=== PATIENT | male | born 1975 | race African-American/Black ===

== ENCOUNTER 2020-12-09 18:10 | Emergency (ER) | payer OTHER ==
[~2020-12-09] VITALS: Ht 175.3 cm; Wt 79.5 kg
[2020-12-09] MEDS ORDERED: LIDOCAINE (700MG/PATCH) PATCH. ONE (18:36)
--- NOTE | 2020-12-09 18:36 | PHYS DOC ---
Past History Additional Past Medical Histor: chronic back pain (MELINDA LEGER APRN) Past Surgical History: Other Additional Past Surgical Histo: bilat foot surgery (MELINDA LEGER APRN) General Adult EDM: Chief Complaint: LOWER BACK PAIN OR INJURY HPI: HPI: Patient is a 45-year-old female who presents to the ER for chronic low back pain x1 month. Patient saw his primary care provider and was given a prescription for naproxen and is undergoing physical therapy. 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 He was brought in by EMS and they administered 5 mg of Versed IV. Patient denies any loss of bowel or bladder, numbness or tingling in his extremities, saddle anesthesias. (MELINDA LEGER APRN) Review of Systems: Review of Systems: 14 body systems of the review of systems have been reviewed. See HPI for pertinent positive and negative responses, otherwise all other systems are negative, nonpertinent or noncontributory (MELINDA LEGER APRN) Current Medications: Current Meds: Current Medications Medications (Trade) Dose Ordered Sig/Dianelys Start Time Stop Time Status Last Admin Dose Admin Acetaminophen (Tylenol) 650 mg 1X ONCE 12/09/20 18:30 12/09/20 18:31 UNV Diphenhydramine HCl (Benadryl) 25 mg 1X ONCE 12/09/20 18:30 12/09/20 18:31 UNV Fentanyl Citrate (Fentanyl 2ml Vial) 100 mcg 1X ONCE 12/09/20 18:30 12/09/20 18:31 UNV Ketorolac Tromethamine (Toradol Im) 60 mg 1X ONCE 12/09/20 18:30 12/09/20 18:31 UNV Lidocaine (Lidoderm) 1 patch DAILY 12/10/20 09:00 UNV Miscellaneous (Lidoderm Patch Removal) 1 ea QHS 12/09/20 21:00 UNV (MELINDA LEGER APRN) Physical Exam: PE: Constitutional: Well developed, well nourished, no acute distress, non-toxic appearance. [] HENT: Normocephalic, atraumatic, bilateral external ears normal, oropharynx moist, no oral exudates, nose normal. [] Eyes: PERRL, EOMI, conjunctiva normal, no discharge. [] Neck: Normal range of motion, no bony cervical spinal tenderness, no stridor Cardiovascular: Normal peripheral perfusion Lungs & Thorax: Normal work of breathing, no tachypnea Abdomen: Bowel sounds normal, soft, no tenderness, no masses, no pulsatile masses. [] Skin: Warm, dry, no erythema, no rash. [] Back: Left lower paraspinal tenderness with palpation Extremities: No tenderness, no cyanosis, no clubbing, ROM intact, no edema. [] Neurologic: Alert and oriented X 3, normal motor function, normal sensory function, no focal deficits noted. [] Psychologic: Affect normal, judgement normal, mood normal. [] (MELINDA LEGER APRN) Current Patient Data: Vital Signs: Vital Signs Date Time Temp Pulse Resp B/P (MAP) Pulse Ox O2 Delivery O2 Flow Rate FiO2 12/09/20 18:15 98.2 102 24 165/130 (142) 100 Room Air (MELINDA LEGER APRN) EKG: EKG: [] (MELINDA LEGER APRN) Radiology/Procedures: Radiology/Procedures: PROCEDURE: CT LUMBAR SPINE WO CONTRAST CT LUMBAR SPINE WO History:Reason: LOW BACK PAIN.PAIN AFTER LIFTING BOX TODAY. RADIATES LEFT LEG / Spl. Instructions: / History: Technique: Noncontrast CT was performed of the lumbar spine. Multiplanar reconstructions were performed. Exposure: One or more of the following individualized dose reduction techniques were utilized for this examination: 1. Automated exposure control 2. Adjustment of the mA and/or kV according to patient size 3. Use of iterative reconstruction technique. Comparison: None Findings: Straightening of the normal lumbar lordosis. Normal vertebral body height. No acute fracture. T12-L1: No canal or neuroforaminal narrowing. L1-L2: Minimal disc bulge. Mild facet arthropathy. No canal or neuroforaminal narrowing. L2-L3: Small disc bulge. Moderate facet arthropathy. Mild subarticular recess narrowing. No canal narrowing. No neuroforaminal narrowing. L3-L4: Small disc bulge. Advanced facet arthropathy. Mild canal narrowing. Left foraminal disc extrusion. Severe left neuroforaminal narrowing with impingement of the exiting left L3 nerve root. Mild right neuroforaminal narrowing. L4-L5: Central disc extrusion extending slightly inferiorly. Severe canal narrowing. Severe subarticular recess narrowing. Advanced facet arthropathy. Moderate bilateral neuroforaminal narrowing. L5-S1: Posterior calcified disc protrusion. Subarticular recess narrowing. Moderate facet arthropathy. Moderate right and mild left neuroforaminal narrowing. Impression: 1. Multilevel lumbar spondylosis. 2. L4-L5 central disc extrusion contributing to severe canal narrowing. 3. Left L3-L4 foraminal disc extrusion contributing to severe neuroforaminal narrowing with impingement of the exiting L3 nerve root. Correlate for radiculopathy. Electronically signed by: Merrick Richards DO (12/09/2020 7:21 PM) [facility] DICTATED AND SIGNED BY: MERRICK RICHARDS DO DATE: 12/09/201914 CC: MELINDA LEGER APRN; PCP,NO ~MTH0 0 [] (MELINDA LEGER APRN) Heart Score: C/O Chest Pain: No Risk Factors: Risk Factors: DM, Current or recent (<one month) smoker, HTN, HLP, family history of CAD, obesity. Risk Scores: Score 0 - 3: 2.5% MACE over next 6 weeks - Discharge Home Score 4 - 6: 20.3% MACE over next 6 weeks - Admit for Clinical Observation Score 7 - 10: 72.7% MACE over next 6 weeks - Early Invasive Strategies (MELINDA LEGER APRN) Course & Med Decision Making: Course & Med Decision Making Pertinent Labs and Imaging studies reviewed. (See chart for details) [] Patient is a 45-year-old female being seen in the ER for low back pain. Work-up in the ER consisted of CT scan of lumbar spine. Patient was treated with Versed by EMS prior to arrival. Patient treated for pain in the ER. CT scan of lumbar spine showed L4-L5 extrusion with canal narrowing and narrowing and impingement of L3 nerve. This is consistent with sciatica. Patient treated for sciatica with pain medication and anti-inflammatory medications, Lidoderm patch. Patient reports that he did not want Benadryl because the medication that he already received has made him drowsy. Reports improvement in his pain. Patient will be discharged home with pain medication and muscle relaxers. I discussed with patient all findings and diagnostic testing as well as the need to follow-up with PCP for further evaluation and treatment or return to the ER if any new or worsening symptoms. Strict return precautions were also discussed at length. Patient voiced understanding and agreement with the plan. Patient is hemodynamically stable at the time of disposition. (MELINDA LEGER APRN) Course & Med Decision Making Did not see or evaluate patient. Did not discuss patient with SHIPWRIGHT SUPERVISOR. Agree with SHIPWRIGHT SUPERVISOR's work-up and disposition per note. (GIDEON FLYNN MD) Dragon Disclaimer: Dragon Disclaimer: This electronic medical record was generated, in whole or in part, using a voice recognition dictation system. (MELINDA LEGER APRN) Departure Departure: Impression: Primary Impression: Low back pain Qualified Codes: M54.42 - Lumbago with sciatica, left side; G89.29 - Other chronic pain Disposition: HOME / SELF CARE / HOMELESS Condition: GOOD Referrals: PCP,NO (PCP) Patient Instructions: Sciatica Additional Instructions: You were seen in the ER for left lower back pain that radiated into your buttock and leg. A CT scan was performed that showed sciatica of your L3. You were treated in the ER with muscle relaxers, pain medication, lidocaine patches. Please apply ice, take ibuprofen/naproxen. You are being discharged home with a prescription for hydrocodone and Flexeril. These medications may cause mary wsiness so caution taking when you need to be alert and do not take with alcohol. You can continue physical therapy as tolerated. Please follow-up with your primary care provider tomorrow regarding your ER visit. If you develop worsening of your pain, loss of bowel or bladder, numbness or tingling in your extremities or groin please return to the ER immediately. EMERGENCY DEPARTMENT GENERAL DISCHARGE INSTRUCTIONS Thank you for coming to [facility] (ED) today and trusting us with you care. We trust that you had a positivie experience in our Emergency Department. If you wish to speak to the department management, you may call the director at [phone]. YOUR FOLLOW UP INSTRUCTIONS ARE FOLLOWS: 1. Do you have a private Doctor? If you do not have a private doctor, please ask for a resource list of physicians or clinics that may be able to assist you with follow up care. 2. The Emergency Physician has interpreted your x-rays. The X-Ray specialist will also review them. If there is a change in the findings, you will be notified in 48 hours when at all possible. 3. A lab test or culture has been done, your results will be reviewed and you will be notified if you need a change in treatment. ADDITIONAL INSTRUCTIONS AND INFORMATION: 1. Your care today has been supervised by a physician who is specially trained in emergency care. Many problems require more than one evaluation for a complete diagnosis and treatment. We recommend that you schedule your follow up appointment as recommended to ensure complete treatment of you illness or injury. If you are unable to obtain follow up care and continue to have a problem, or if your condition worsens, we recommend that you return to the ED. 2. We are not able to safely determine your condition over the phone nor are we able to give sound medical advice over the phone. For these safety reasons, if you call for medical advice we will ask you to come to the ED for further evaluation. 3. If you have any questions regarding these discharge instructions please call the ED at [phone]. SAFETY INFORMATION: In the interest of safety, wellness, and injury prevention; we encourage you to wear your sealbelt, if you smoke; quite smoking, and we encourage family to use a protective helmet for bicycling and other sporting events that present an increased risk for head injury. IF YOUR SYMPTOMS WORSEN OR NEW SYMPTOMS DEVELOP, OR YOU HAVE CONCERNS ABOUT YOUR CONDITION; OR IF YOUR CONDITION WORSENS WHILE YOU ARE WAITING FOR YOUR FOLLOW UP APPOINTMENT; EITHER CONTACT YOUR PRIMARY CARE DOCTOR, THE PHYSICIAN WHOSE NAME AND NUMBER YOU WERE GIVEN, OR RETURN TO THE ED IMMEDIATELY. Scripts Hydrocodone Bit/Acetaminophen (HYDROCODONE-APAP 5-325 ) 1 Each Tablet 1 TAB PO PRN Q6HRS PRN for PAIN for 3 Days, #12 TAB 0 Refills Prov: MELINDA LEGER APRN 12/09/20 Cyclobenzaprine Hcl (CYCLOBENZAPRINE HCL) 5 Mg Tablet 1 TAB PO TID for muscle spasm for 5 Days, #15 TAB 0 Refills Prov: MELINDA LEGER APRN 12/09/20 MELINDA LEGER APRN Dec 09, 2020 18:36 GIDEON FLYNN MD Dec 09, 2020 20:25
[2020-12-09] MEDS: KETOROLAC 60 MG/2 ML VIAL. IM ONE (18:38)
[2020-12-09] MEDS: ACETAMINOPHEN 325 MG TABLET PO ONE (18:40)
[2020-12-09] MEDS: LIDOCAINE (700MG/PATCH) PATCH. TD SCH (18:40)
[2020-12-09] MEDS: diphenhydrAMINE 50 MG/ML VIAL IM ONE (18:41)
[2020-12-09 19:08] VITALS: BP 143/98
--- NOTE | 2020-12-09 19:23 | RAD ---
CT LUMBAR SPINE WO History:Reason: LOW BACK PAIN.PAIN AFTER LIFTING BOX TODAY. RADIATES LEFT LEG / Spl. Instructions: / History: Technique: Noncontrast CT was performed of the lumbar spine. Multiplanar reconstructions were perform ed. Exposure: One or more of the following individualized dose reduction techniques were utilized for thi s examination: 1. Automated exposure control 2. Adjustment of the mA and/or kV according to patient size 3. Use of iterative reconstruction technique. Comparison: None Findings: Straightening of the normal lumbar lordosis. Normal vertebral body height. No acute fracture. T12-L1: No canal or neuroforaminal narrowing. L1-L2: Minimal disc bulge. Mild facet arthropathy. No canal or neuroforaminal narrowing. L2-L3: Small disc bulge. Moderate facet arthropathy. Mild subarticular recess narrowing. No canal na rrowing. No neuroforaminal narrowing. L3-L4: Small disc bulge. Advanced facet arthropathy. Mild canal narrowing. Left foraminal disc extru abdulaziz. Severe left neuroforaminal narrowing with impingement of the exiting left L3 nerve root. Mild r ight neuroforaminal narrowing. L4-L5: Central disc extrusion extending slightly inferiorly. Severe canal narrowing. Severe subartic ular recess narrowing. Advanced facet arthropathy. Moderate bilateral neuroforaminal narrowing. L5-S1: Posterior calcified disc protrusion. Subarticular recess narrowing. Moderate facet arthropath y. Moderate right and mild left neuroforaminal narrowing. Impression: 1. Multilevel lumbar spondylosis. 2. L4-L5 central disc extrusion contributing to severe canal narrowing. 3. Left L3-L4 foraminal disc extrusion contributing to severe neuroforaminal narrowing with impingem ent of the exiting L3 nerve root. Correlate for radiculopathy. Electronically signed by: Merrick Sevilla DO (12/09/2020 7:21 PM) [facility]
[2020-12-09] MEDS ORDERED: CYCL5TAB PO (20:01)
[2020-12-09] MEDS ORDERED: HYDR-2155 PO (20:01)
[2020-12-09] MEDS: CYCLOBENZAPRINE 10 MG TABLET. PO ONE (20:30)
[2020-12-09] MEDS: HYDROcodone/APAP 5/325MG 1 TAB TABLET PO ONE (20:30)
[2020-12-09] MEDS ORDERED: PATCH REMOVAL. MC SCH (21:00)
== END 2020-12-09 20:40 | disposition home or self-care (01) ==
LOC: ER 18:10
DX: M54.42 Lumbago with sciatica, left side (principal)
CPT/HCPCS: 72131; 96372; 96374; 99284; J1885; J3010